=== PATIENT | male | born 1980 | race Caucasian/White ===

== ENCOUNTER 2018-08-01 02:27 | Emergency (ER) | payer MEDICAID ==
[2018-08-01] MEDS: SOD CHLORIDE 0.9% 1,000 ML IV (03:04)
[2018-08-01] MEDS: CEFAZOLIN 1 GM/50 ML (PMX) 50 ML IVPB (03:04)
[2018-08-01] MEDS: DIPHTH/TET/ACEL PERTUSS (ADULT) 0.5 ML VIAL IM* (03:05)
[2018-08-01 03:32] LABS: ADD MAN DIFF? NO
[2018-08-01] MEDS: morphine 4 MG/ML VIAL IV (03:38)
[2018-08-01] MEDS: ONDANSETRON 4 MG INJ IV (03:38)
[2018-08-01] MEDS: HYDROmorphONE 1 MG/ML SYG IV (03:58)
[2018-08-01 04:02] LABS: ANION GAP 20 (8-16); BLOOD UREA NITROGEN 19 mg/dl (7-20); CALCIUM 9.1 mg/dl (8.4-10.2); CARBON DIOXIDE 23 mmol/L (21-31); CHLORIDE 101 mmol/L (97-110); GLUCOSE 110 mg/dl (70-220); POTASSIUM 4.1 mmol/L (3.5-5.1); SODIUM 140 mmol/L (135-144)
[2018-08-01 04:04] LABS: WHITE BLOOD COUNT 13.1 10^3/ul (4.8-10.8)
[2018-08-01 04:04] LABS: BASOPHIL # 0.1 10^3/ul (0.0-0.1); BASOPHILS % 0.4 % (0.0-2.0); EOSINOPHILS % 0.2 % (0.0-7.0); HEMATOCRIT 42.7 % (42.0-52.0); HEMOGLOBIN 14.6 g/dl (14.0-18.0); INR 1.08; LYMPHOCYTES # 1.6 10^3/ul (0.8-2.9); LYMPHOCYTES % 12.1 % (15.0-51.0); MEAN CORPUSCULAR HEMOGLOBIN 30.2 pg (29.0-33.0); MEAN CORPUSCULAR HGB CONC 34.2 g/dl (32.0-37.0); MEAN CORPUSCULAR VOLUME 88.4 fl (82.0-101.0); MEAN PLATELET VOLUME 11.1 fl (7.4-10.4); MONOCYTE # 0.8 10^3/ul (0.3-0.9); MONOCYTES % 6.1 % (0.0-11.0); NEUTROPHIL # 10.6 10^3/ul (1.6-7.5); NEUTROPHILS % 80.8 % (39.0-77.0); PARTIAL THROMBOPLASTIN TIME 27.6 Sec (25.0-35.0); PLATELET COUNT 258 10^3/UL (140-415); PROTIME 14.1 Sec (11.9-14.9); PT RATIO 1.1; RED BLOOD COUNT 4.83 10^6/ul (4.70-6.10); RED CELL DISTRIBUTION WIDTH 12.4 % (11.5-14.5)
== END 2018-08-01 07:54 | disposition home or self-care (01) ==
LOC: E/R 02:27
DX: S01.01XA Laceration without foreign body of scalp, initial encounter (principal); S62.242A Displaced fracture of shaft of first metacarpal bone, left hand, initial encounter for closed fracture; S61.412A Laceration without foreign body of left hand, initial encounter; S71.111A Laceration without foreign body, right thigh, initial encounter; R07.9 Chest pain, unspecified; X99.1XXA Assault by knife, initial encounter
CPT/HCPCS: 36415; 70450; 71045; 72125; 73130-LT; 73550; 80048; 80307; 85025; 85610; 85730; 90471; 90715; 93005; 96374; 96375; 99285-25